=== PATIENT | female | born 1985 | race Caucasian/White ===

== ENCOUNTER 2017-09-11 11:42 | Emergency (ER) | payer OTHER ==
[2017-09-11 12:02] VITALS: BP 189/95; PULSE 106; TEMP 97.8; BMI 40.4
--- NOTE | 2017-09-11 12:18 | PDOC ---
History of Present Illness - General Chief Complaint: Chest Pain Stated Complaint: ELEVATED BP, CHEST PAIN Time Seen by Provider: 09/11/17 12:04 - History of Present Illness Initial Comments: 09/11/17 12:35 The patient is a 32 year old female with a history HTN, Asthma who presents for evaluation of chest pain and elevated blood pressure. The patient reports onset of left sided intermittent chest pressure with associated palpitations earlier this morning prompting her to present to an Urgent Care for evaluation. She was noted to have an elevated blood pressure and was sent to the ED for further evaluation of her symptoms. She reports that she did take her amlodipine 10mg this morning. She denies fevers, chills, headache, vision changes, SOB, vomiting, abdominal pain, or changes with urination or bowel movements. Past History - Past Medical History Allergies/Adverse Reactions: Allergies Allergy/AdvReac Type Severity Reaction Status Date / Time aspirin Allergy Verified 09/11/17 11:59 NSAIDS (Non-Steroidal Allergy Verified 09/11/17 11:59 Anti-Inflamma Home Medications: Ambulatory Orders Albuterol Sulfate Inhaler - [Ventolin HFA Inhaler -] 1 - 2 inh PO Q4H 08/26/15 Epinephrine [Twinject] 0.3 mg IM ONCE PRN #2 ml 08/26/15 Amlodipine Besylate [Norvasc -] 5 mg PO DAILY 09/11/17 Asthma: Yes COPD: No HTN: Yes (noncompliant with medication) - Surgical History Cholecystectomy: Yes - Immunization History Immunization Up to Date: Yes - Suicide/Smoking/Psychosocial Hx Smoking Status: No Smoking History: Never smoked Have you smoked in the past 12 months: Yes Number of Cigarettes Smoked Daily: 0 If you are a former smoker, when did you quit?: 6yrs Information on smoking cessation initiated: No Hx Alcohol Use: No Drug/Substance Use Hx: No Substance Use Type: None Review of Systems - Review of Systems Comments:: 09/11/17 12:40 Constitutional: No fevers, chills, fatigue, malaise HEENT: No Rhinorrhea, nasal congestion, visual changes Cardiovascular: Chest pain, palpitations. No syncope, lightheadedness Respiratory: No Cough, SOB, Hemoptysis, Gastrointestinal: Nausea, No Abdominal pain, Vomiting, Constipation, Diarrhea, Melena Genitourinary: No Dysuria, Frequency, Urgency, Hesitancy, Hematuria, Flank pain Musculoskeletal: No Myalgia, arthralgia Skin: No rashes, itching, bruising, pallor Neurologic: No Headache, Dizziness, Numbness, Weakness, or Tingling Psychiatric: No Hallucinations. No SI or HI *Physical Exam - Vital Signs Last Vital Signs Temp Pulse Resp BP Pulse Ox 97.8 F 106 H 17 189/95 98 09/11/17 11:59 09/11/17 11:59 09/11/17 11:59 09/11/17 11:59 09/11/17 11:59 - Physical Exam Comments: 09/11/17 12:41 General Appearance: Nourished. No Apparent Distress HEENT: EOMI, ANGELICA. No Pharyngeal Erythema, Tonsillar Exudate, Tonsillar Erythema Neck: No Cervical Lymphadenopathy Respiratory/Chest: Lungs Clear, Normal Breath Sounds. No Crackles, Rales, Rhonchi, Wheezing Cardiovascular: Regular Rhythm, Regular Rate. No JVD, Murmur, Gallops, Rubs Gastrointestinal/Abdominal: Normal Bowel Sounds, Soft. No Guarding, Rebound, Tenderness Musculoskeletal: No CVA Tenderness Extremity: Normal Capillary Refill Integumentary: Normal Color, Dry, Warm Neurologic: Fully Oriented, Alert, Normal Mood/Affect, Normal Response, Heart Score/ECG Review #1 ECG reviewed & interpreted by me at: 12:41 General ECG Interpretation: Sinus Rhythm, Normal Rate, Normal Intervals, No acute ischemic changes ED Treatment Course - LABORATORY CBC & Chemistry Diagram: 09/11/17 12:32 09/11/17 12:32 Medical Decision Making - Medical Decision Making 09/11/17 12:42 The patient is a 32 year old female with a history HTN, Asthma who presents for evaluation of chest pain and elevated blood pressure. Differential includes but is not limited to: Arrhythmia, ACS, Pneumonia, Musculoskeletal, infectious, metabolic derangement. Given the patient's elevated BP here in the ED, it is possible her symptoms are due to her elevated blood pressure. We will obtain a cbc, cmp, troponin, chest plain film, EKG to evaluate for other etiologies. We will treat her with reglan here in the ED for her nausea. We will continue to monitor and reassess. 09/11/17 14:20 CBC, cmp, troponin, ekg are unremarkable. Chest plain film is unremarkable. The patient is asymptomatic at this time. We are comfortable discharging the patient home at this time with PCP follow up. We discussed the case with Dr. Ng the patient's primary who was made aware of her visit to the ED. We discussed the results and the plan with the patient who voiced understanding and is agreeable with the plan. *DC/Admit/Observation/Transfer Diagnosis at time of Disposition: Hypertension Qualifiers: Hypertension type: unspecified Qualified Code(s): I10 - Essential (primary) hypertension - Discharge Dispostion Disposition: HOME Condition at time of disposition: Improved Admit: No - Referrals Referrals: Vinnie Ng MD [Primary Care Provider] - - Patient Instructions Printed Discharge Instructions: DI for High Blood Pressure, DI for Atypical Chest Pain Additional Instructions: Please return to the ED if you experience concerning or worsening symptoms including worsening chest pain, difficulty breathing or fevers. You were seen in the ER for chest pain and high blood pressure. Your lab results, EKG, and chest xray were normal here in the ED. Please call to schedule a follow up appointment with your primary care provider within 3-4 days to discuss your ER visit and further management of your symptoms. - Post Discharge Activity
[2017-09-11] MEDS ORDERED: METOCLOPRAMIDE HCL INJECTION 10 MG/2 ML VIAL IVPUSH ONE (12:30)
[2017-09-11 12:39] LABS: BASO % 1.5 % (0-2.0); HEMATOCRIT 41.6 % (32.4-45.2); HEMOGLOBIN 13.5 GM/dL (10.7-15.3); LYMPH % 24.5 % (8-40); MCH 26.4 pg (25.7-33.7); MCHC 32.6 g/dl (32.0-36.0); MEAN CELL VOLUME 81.1 fl (80-96); MEAN PLT VOLUME 7.9 fl (7.5-11.1); MONO % 7.6 % (3.8-10.2); NEUT % 60.4 % (42.8-82.8); PLATELET COUNT 326 K/MM3 (134-434); RBC 5.12 M/mm3 (3.60-5.2); WHITE BLOOD COUNT 9.4 K/mm3 (4.0-10.0)
[2017-09-11] MEDS ORDERED: METOCLOPRAMIDE HCL INJECTION 10 MG/2 ML VIAL ONE (12:46)
[2017-09-11 13:08] LABS: ANION GAP 9 (8-16); BILIRUBIN,TOTAL 0.7 mg/dL (0.2-1.0); BLOOD UREA NITROGEN 9 mg/dL (7-18); CALCIUM 8.2 mg/dL (8.5-10.1); CHLORIDE 105 mmol/L (98-107); CO2 24 mmol/L (21-32); CREATININE 0.7 mg/dL (0.55-1.02); GLUCOSE,RANDOM 86 mg/dL (74-106); POTASSIUM 3.7 mmol/L (3.5-5.1); SGOT/AST 13 U/L (15-37); SGPT/ALT 25 U/L (12-78); SODIUM 138 mmol/L (136-145); TOT PROT 7.3 g/dl (6.4-8.2)
[2017-09-11 13:09] LABS: ALK PHOS 70 U/L (45-117)
--- NOTE | 2017-09-11 13:49 | PDOC ---
Attending Attestation - Resident Resident Name: Yonatan Tyler - ED Attending Attestation I have performed the following: I have examined & evaluated the patient, The case was reviewed & discussed with the resident, I agree w/resident's findings & plan, Exceptions are as noted - HPI HPI: 09/11/17 13:46 32-year-old female with history of hypertension presents with episode of chest pain that awoke her from sleep around 3 AM in the setting of her blood pressure reading 200/110. Admitted noncompliance with her BP meds, has not taken them for some time. The patient took an extra dose of her amlodipine, presents to an urgent care for evaluation, but they referred her to the emergency department. She is currently asymptomatic, has no other symptoms of end organ injury on review of systems, has no exertional chest pain or dyspnea. - Physicial Exam PE: 09/11/17 13:47 Vitals as noted, elevated blood pressure, normal O2 sat Agree with exam as outlined, normal without evidence of pulmonary edema or neurological injury - Medical Decision Making 09/11/17 13:47 Patient seen and evaluated with the resident. I agree with the overall evaluation, assessment, and management with the following summary of visit: 32-year-old female with transient chest discomfort in the setting of elevated blood pressures, asymptomatic now without red flags on history or physical exam. EKG is nonischemic Labs are within normal limits including troponin Chest x-ray pending, if normal and remains asymptomatic and be discharged to follow-up with her primary physician, Dr. Ng, who was consulted and agrees with plan. Heart Score/ECG Review #1 ECG reviewed & interpreted by me at: 11:54 General ECG Interpretation: Sinus Rhythm, Normal Rate (100), Normal Intervals ( qtc 474), No acute ischemic changes
== END 2017-09-11 14:59 | disposition home or self-care (01) ==
LOC: JER 11:42
PROC: 3E033GC Introduction of Other Therapeutic Substance into Peripheral Vein, Percutaneous Approach (ICD-10-PCS; principal; 2017-09-11)
DX: I10 Essential (primary) hypertension (principal); Z91.14 Patient's other noncompliance with medication regimen; J45.909 Unspecified asthma, uncomplicated
CPT/HCPCS: 36415; 71046-TC-FY; 80053; 82550; 84484; 84703; 85025; 99282-25

== ENCOUNTER 2018-10-20 09:37 | Emergency (ER) | payer OTHER ==
[2018-10-20 09:42] VITALS: TEMP 97.8; BMI 44.1
--- NOTE | 2018-10-20 10:07 | PDOC ---
History of Present Illness - General History Source: Patient Exam Limitations: No Limitations - History of Present Illness Initial Comments: 10/20/18 16:28 33-year-old female, with a past medical history of asthma and HTN (noncompliant with meds), who presents to the ED with abdominal pain s/p appendectomy on . The patient denies any fevers, chills, nausea, vomiting, diarrhea, or constipation. Denies any chest pain or shortness of breath. Allergies: aspirin, NSAIDS Social History: Former smoker. Denies any drug use. Surgical History: Appendectomy, cholecystectomy. PCP: Dr. Ng <Irena Mathur - Last Filed: 10/20/18 16:40> - General History Source: Patient <Brenda Nguyen - Last Filed: 10/22/18 16:35> - General Chief Complaint: Pain Stated Complaint: lower abdominal pain s/p appendecotmy on 10/08/18 Time Seen by Provider: 10/20/18 09:54 Past History <Irena Mathur - Last Filed: 10/20/18 16:40> - Past Medical History Asthma: Yes COPD: No HTN: Yes (noncompliant with medication) - Surgical History Appendectomy: Yes Cholecystectomy: Yes - Immunization History Immunization Up to Date: Yes - Suicide/Smoking/Psychosocial Hx Smoking Status: No Smoking History: Never smoked Have you smoked in the past 12 months: Yes Number of Cigarettes Smoked Daily: 0 If you are a former smoker, when did you quit?: 6yrs Hx Alcohol Use: No Drug/Substance Use Hx: No Substance Use Type: None <Brenda Nguyen - Last Filed: 10/22/18 16:35> - Past Medical History Allergies/Adverse Reactions: Allergies Allergy/AdvReac Type Severity Reaction Status Date / Time aspirin Allergy Verified 10/20/18 09:38 NSAIDS (Non-Steroidal Allergy Verified 10/20/18 09:38 Anti-Inflamma Home Medications: Ambulatory Orders Amlodipine Besylate [Norvasc -] 10 mg PO DAILY 09/11/17 Azilsartan Medoxomil [Edarbi] 80 mg PO DAILY 10/20/18 Budesonide/Formeterol Fumarate [SYMBICORT 160/4.5mcg -] 1 inh PO BID 10/20/18 Review of Systems - Review of Systems Able to Perform ROS?: Yes Comments:: 10/20/18 16:33 GENERAL/CONSTITUTIONAL: No fever or chills. No weakness. HEAD, EYES, EARS, NOSE AND THROAT: No change in vision. No ear pain or discharge. No sore throat. CARDIOVASCULAR: No chest pain or shortness of breath. RESPIRATORY: No cough, wheezing, or hemoptysis. SKIN: No rash GASTROINTESTINAL: (+)Abdominal pain. No nausea, vomiting, diarrhea or constipation. GENITOURINARY: No dysuria, frequency, or change in urination. MUSCULOSKELETAL: No joint or muscle swelling or pain. No neck or back pain. NEUROLOGIC: No headache, vertigo, loss of consciousness, or change in strength/ sensation. ENDOCRINE: No increased thirst. No abnormal weight change. HEMATOLOGIC/LYMPHATIC: No anemia, easy bleeding, or history of blood clots. ALLERGIC/IMMUNOLOGIC: No hives or skin allergy. <Irena Mathur - Last Filed: 10/20/18 16:40> *Physical Exam - Vital Signs Last Vital Signs Temp Pulse Resp BP Pulse Ox 97.8 F 84 18 146/90 100 10/20/18 09:38 10/20/18 16:16 10/20/18 16:16 10/20/18 16:16 10/20/18 16:16 - Physical Exam Comments: 10/20/18 16:34 GENERAL: (+)Obese, mild distress. Awake, alert, and fully oriented. HEAD: No signs of trauma EYES: PERRLA, EOMI, sclera anicteric, conjunctiva clear ENT: Auricles normal inspection, hearing grossly normal, nares patent, oropharynx clear without exudates. Moist mucosa NECK: Normal ROM, supple, no lymphadenopathy, JVD, or masses LUNGS: Breath sounds equal, clear to auscultation bilaterally. No wheezes, and no crackles HEART: Regular rate and rhythm, normal S1 and S2, no murmurs, rubs or gallops ABDOMEN: (+)Mild tenderness LLQ at the site of the laparoscopic incision. Soft, normoactive bowel sounds. No guarding, no rebound. No masses EXTREMITIES: Normal range of motion, no edema. No clubbing or cyanosis. No cords, erythema, or tenderness NEUROLOGICAL: Cranial nerves II through XII grossly intact. SKIN: Skin clean, no redness, incision healing well. Warm, Dry, normal turgor. rm, Dry, normal turgor. <Irena Mathur - Last Filed: 10/20/18 16:40> - Vital Signs Last Vital Signs Temp Pulse Resp BP Pulse Ox 97.8 F 91 H 18 160/111 H 99 10/20/18 09:38 10/20/18 09:38 10/20/18 09:38 10/20/18 09:38 10/20/18 09:38 <Brenda Nguyen S - Last Filed: 10/22/18 16:35> ED Treatment Course - LABORATORY CBC & Chemistry Diagram: 10/20/18 10:13 10/20/18 10:10 - ADDITIONAL ORDERS Additional order review: Laboratory Results 10/20/18 10/20/18 10:10 10:06 Sodium 135 L Potassium 4.0 Chloride 102 Carbon Dioxide 21 Anion Gap 12 BUN 10 Creatinine 0.7 Creat Clearance w eGFR 95.23 Random Glucose 133 H Calcium 8.9 Total Bilirubin 0.6 AST 32 ALT 26 Alkaline Phosphatase 60 Total Protein 7.3 Albumin 4.0 POC Urine HCG Negative 10/20/18 10:13 RBC 4.77 MCV 80.6 MCHC 32.8 RDW 14.0 MPV 8.4 Neutrophils % 60.1 Lymphocytes % 23.1 Monocytes % 6.1 Eosinophils % 9.6 H Basophils % 1.1 - Medications Given in the ED: ED Medications Discontinued Medications Generic Name Dose Route Start Last Admin Trade Name Freq PRN Reason Stop Dose Admin Ondansetron HCl 4 mg 10/20/18 13:30 10/20/18 13:33 Zofran Injection IVPUSH 10/20/18 13:31 4 mg ONCE ONE Administration <Irena Mathur - Last Filed: 10/20/18 16:40> - LABORATORY CBC & Chemistry Diagram: 10/20/18 10:13 10/20/18 10:10 <Brenda Nguyen S - Last Filed: 10/22/18 16:35> Medical Decision Making - Medical Decision Making 10/20/18 16:40 There was an unfortunate delay in reading the CT scan. We received the report around 16:00. Discussed with Dr. Ng and patient will be discharged home. We observed the patient every hour on the hour. Patient is comfortable and eating. Discharge diagnosis: Abdominal pain s/p surgery. <Irena Mathur - Last Filed: 10/20/18 16:40> *DC/Admit/Observation/Transfer - Attestations Scribe Attestion: 10/20/18 16:39 Documentation prepared by Irena Mathur, acting as medical examiner for Brenda Nguyen MD. <Irena Mathur - Last Filed: 10/20/18 16:40> - Discharge Dispostion Decision to Admit order: No <Brenda Nguyen - Last Filed: 10/22/18 16:35> Diagnosis at time of Disposition: Abdominal pain Qualifiers: Abdominal location: unspecified location Qualified Code(s): R10.9 - Unspecified abdominal pain - Discharge Dispostion Disposition: HOME Condition at time of disposition: Stable - Referrals Referrals: Vinnie Ng MD [Primary Care Provider] - - Patient Instructions Printed Discharge Instructions: DI for Abdominal Pain-Adult - Post Discharge Activity
[2018-10-20] MEDS ORDERED: SODIUM CHLORIDE 1,000 ML IV SCH (10:15)
[2018-10-20 10:51] LABS: ALK PHOS 60 U/L (45-117); ANION GAP 12 MMOL/L (8-16); BILIRUBIN,TOTAL 0.6 mg/dl (0.2-1); BLOOD UREA NITROGEN 10 mg/dl (7-18); CALCIUM 8.9 mg/dl (8.5-10); CHLORIDE 102 mmol/L (98-107); CO2 21 mmol/L (21-32); CREATININE 0.7 mg/dl (0.55-1.3); GLUCOSE,RANDOM 133 mg/dl (74-106); SGOT/AST 32 U/L (15-37); SGPT/ALT 26 U/L (13-61); SODIUM 135 mmol/L (136-145); TOT PROT 7.3 g/dl (6.4-8.2)
[2018-10-20 11:16] LABS: BASO % 1.1 % (0-2.0); EOS % 9.6 % (0-4.5); HEMATOCRIT 38.4 % (32.4-45.2); HEMOGLOBIN 12.6 GM/dl (10.7-15.3); LYMPH % 23.1 % (8-40); MCH 26.5 pg (25.7-33.7); MCHC 32.8 g/dl (32.0-36.0); MEAN CELL VOLUME 80.6 fl (80-96); MEAN PLT VOLUME 8.4 fl (7.5-11.1); MONO % 6.1 % (3.8-10.2); NEUT % 60.1 % (42.8-82.8); PLATELET COUNT 356 K/MM3 (134-434); RBC 4.77 M/mm3 (3.60-5.2); WHITE BLOOD COUNT 7.5 K/mm3 (4.0-10.8)
[2018-10-20] MEDS ORDERED: ONDANSETRON 4 MG/2 ML VIAL ONE (13:19)
[2018-10-20] MEDS ORDERED: ONDANSETRON 4 MG/2 ML VIAL IVPUSH ONE (13:30)
[2018-10-20 16:16] VITALS: BP 146/90; PULSE 84
== END 2018-10-20 16:37 | disposition home or self-care (01) ==
LOC: FER 09:37
PROC: 3E033GC Introduction of Other Therapeutic Substance into Peripheral Vein, Percutaneous Approach (ICD-10-PCS; principal; 2018-10-20)
PROC: 3E0337Z Introduction of Electrolytic and Water Balance Substance into Peripheral Vein, Percutaneous Approach (ICD-10-PCS; 2018-10-20)
DX: R10.9 Unspecified abdominal pain (principal); I10 Essential (primary) hypertension; J45.909 Unspecified asthma, uncomplicated
CPT/HCPCS: 36415; 74177-TC; 80053; 81025; 85025; 99283-25; J7030

== ENCOUNTER 2023-03-19 16:38 | Day surgery (SDC) | payer OTHER ==
[2023-03-19] MEDS ORDERED: IRON SUCROSE COMPLEX 200 MG in SODIUM CHLORIDE 100 ML IVPB ONE (17:00)
[2023-03-19 18:05] VITALS: BP 128/77; PULSE 95; RESP 17; TEMP 98.9
== END 2023-03-19 18:05 | disposition home or self-care (01) ==
LOC: FINFUSION 16:38 → FM/S 16:39 → FINFUSION 18:05
PROVIDERS: ATTEND Family Medicine
PROC: 3E033GC Introduction of Other Therapeutic Substance into Peripheral Vein, Percutaneous Approach (ICD-10-PCS; principal; 2023-03-19)
DX: D50.9 Iron deficiency anemia, unspecified (principal)
CPT/HCPCS: 96365

== ENCOUNTER 2023-03-26 16:58 | Day surgery (SDC) | payer OTHER ==
[2023-03-26] MEDS ORDERED: IRON SUCROSE INJECTION 200 MG in SODIUM CHLORIDE 100 ML IVPB ONE (17:15)
[2023-03-26 17:23] VITALS: BP 129/81; PULSE 88; RESP 18; TEMP 97.9
[2023-03-26] MEDS ORDERED: IRON SUCROSE COMPLEX 200 MG in SODIUM CHLORIDE 100 ML IVPB ONE (17:45)
== END 2023-03-26 18:30 | disposition home or self-care (01) ==
LOC: FM/S 16:58 → FINFUSION 16:58
PROVIDERS: ATTEND Family Medicine
PROC: 3E033GC Introduction of Other Therapeutic Substance into Peripheral Vein, Percutaneous Approach (ICD-10-PCS; principal; 2023-03-26)
DX: D50.9 Iron deficiency anemia, unspecified (principal)
CPT/HCPCS: 96365